=== PATIENT | male | born 1990 | race Caucasian/White ===

== ENCOUNTER 2023-02-09 14:45 | Inpatient (IN) | payer OTHER ==
[2023-02-09 15:36] VITALS: BMI 27.2
[2023-02-09] MEDS ORDERED: LOPERAMIDE HCL 2 MG CAPSULE PO PRN (17:50)
[2023-02-09] MEDS ORDERED: POLYETHYLENE GLYCOL (HEALTHYLAX) 3350 17 GM PACKET PO PRN (17:50)
[2023-02-09] MEDS ORDERED: P-EPHED 60MG/TRIPROLIDI 2.5MG TABLET PO PRN (17:50)
[2023-02-09] MEDS ORDERED: MAG HYDROX/AL HYDROX/SIMETH 30 ML UNIT-DOSE CUP PO PRN (17:50)
[2023-02-09] MEDS ORDERED: ONDANSETRON *ODT* 4 MG TABLET SL PRN (17:50)
[2023-02-09] MEDS ORDERED: DICYCLOMINE HCL 10 MG CAPSULE PO PRN (17:50)
[2023-02-09] MEDS ORDERED: BENZONATATE 200 MG CAPSULE PO PRN (17:50)
[2023-02-09] MEDS ORDERED: NICOTINE POLACRILEX 2 MG GUM BUC PRN (17:50)
[2023-02-09] MEDS ORDERED: IBUPROFEN 400 MG TABLET (FP) PO PRN (17:50)
[2023-02-09] MEDS ORDERED: MAGNESIUM HYDROX 2400MG/30ML ORAL SUSPENSION 30 ML CUP PO PRN (17:50)
[2023-02-09] MEDS ORDERED: IBUPROFEN 600 MG TABLET (FP) PO PRN (17:50)
[2023-02-09] MEDS ORDERED: guaiFENesin 600 MG TABLET.ER (FP) PO PRN (17:50)
[2023-02-09] MEDS ORDERED: METHOCARBAMOL 500 MG TABLET PO PRN (17:50)
[2023-02-09] MEDS ORDERED: BISMUTH SUBSALICYLATE 524 MG/30 ML PO PRN (17:50)
[2023-02-09] MEDS ORDERED: BENZOCAINE/MENTHOL (CHLORASEPTIC ) LOZENGE MM PRN (17:50)
[2023-02-09] MEDS ORDERED: ACETAMINOPHEN 325 MG TABLET (FP) PO PRN (17:50)
[2023-02-09] MEDS: MELATONIN 5 MG TABLETS PO SCH (22:32)
[2023-02-09] MEDS: THIAMINE HCL 100 MG TABLET (FP) PO SCH (22:33)
[2023-02-10] MEDS ORDERED: LORazepam 1 MG TABLET PO PRN (08:37)
[2023-02-10 10:40] LABS: HEMATOCRIT 44.3 % (35.4-49); HEMOGLOBIN 15.8 GM/dL (11.7-16.9); MCH 33.5 pg (25.7-33.7); MCHC 35.6 g/dl (32.0-35.9); MEAN CELL VOLUME 94.2 fl (80-96); MEAN PLT VOLUME 7.2 fl (7.5-11.1); PLATELET COUNT 116 10^3/uL (134-434); RBC 4.71 M/mm3 (4.00-5.60); RDW 14.1 % (11.9-15.9)
[2023-02-10 10:41] LABS: POTASSIUM 3.8 mmol/L (3.5-5.1)
[2023-02-10] MEDS: PRENATAL VITAMINS W/ FOLIC ACID TABLET (FP) PO SCH (10:47)
[2023-02-10] MEDS: LORazepam 2 MG TABLET PO SCH ×3 (10:53→22:00)
[2023-02-10 11:26] LABS: ALBUMIN 4.4 g/dl (3.4-5.0); BLOOD UREA NITROGEN 6.8 mg/dL (7-18); CALCIUM 9.7 mg/dL (8.5-10.1)
[2023-02-10 11:29] LABS: CREATININE 0.7 mg/dL (0.55-1.3)
[2023-02-10 11:31] LABS: TOT PROT 8.2 g/dl (6.4-8.2)
[2023-02-10 11:38] LABS: HIV INTERPRETATION NEGATIVE (NEGATIVE)
[2023-02-10] MEDS ORDERED: PNEUMOC 20-VAL CONJ-DIP CRM/PF 0.5 ML SYRINGE IM ONE (12:00)
[2023-02-10] MEDS: amLODIPine BESYLATE 10 MG TABLET (FP) PO SCH (13:38)
[2023-02-10] MEDS: THIAMINE HCL 100 MG TABLET (FP) PO SCH (21:29)
[2023-02-10] MEDS: MELATONIN 5 MG TABLETS PO SCH (21:29)
[2023-02-10] MEDS: hydrOXYzine PAMOATE 25 MG CAPSULE (FP) PO PRN (21:29)
[2023-02-11] MEDS: LORazepam 1 MG TABLET PO SCH ×4 (05:53→22:10)
[2023-02-11] MEDS: amLODIPine BESYLATE 10 MG TABLET (FP) PO SCH (10:38)
[2023-02-11] MEDS: hydrOXYzine PAMOATE 25 MG CAPSULE (FP) PO PRN (10:38)
[2023-02-11] MEDS: PRENATAL VITAMINS W/ FOLIC ACID TABLET (FP) PO SCH (10:38)
[2023-02-11] MEDS ORDERED: cloNIDine HCL 0.1 MG TABLET PO PRN (15:02)
[2023-02-11] MEDS: THIAMINE HCL 100 MG TABLET (FP) PO SCH (22:10)
[2023-02-11] MEDS: MELATONIN 5 MG TABLETS PO SCH (22:12)
[2023-02-12] MEDS: LORazepam 0.5 MG TABLET PO SCH ×4 (05:38→22:04)
[2023-02-12] MEDS: PRENATAL VITAMINS W/ FOLIC ACID TABLET (FP) PO SCH (10:33)
[2023-02-12] MEDS: amLODIPine BESYLATE 10 MG TABLET (FP) PO SCH (10:33)
[2023-02-12] MEDS: THIAMINE HCL 100 MG TABLET (FP) PO SCH (22:04)
[2023-02-12] MEDS: MELATONIN 5 MG TABLETS PO SCH (22:04)
[2023-02-13] MEDS ORDERED: LORazepam 0.5 MG TABLET PO ONE (05:00)
[2023-02-13 09:30] VITALS: BP 129/83; PULSE 76; RESP 18; TEMP 98.2
[2023-02-13] MEDS: PRENATAL VITAMINS W/ FOLIC ACID TABLET (FP) PO SCH (10:39)
[2023-02-13] MEDS: amLODIPine BESYLATE 10 MG TABLET (FP) PO SCH (10:39)
== END 2023-02-13 11:19 | disposition home or self-care (01) | DRG 775 ==
LOC: YASAS 14:45 → Y6N 19:56
PROVIDERS: ADMIT Allergy & Immunology; ATTEND Surgery
PROC: HZ2ZZZZ Detoxification Services for Substance Abuse Treatment (ICD-10-PCS; principal; 2023-02-09)
DX: F10.230 Alcohol dependence with withdrawal, uncomplicated (principal); F17.210 Nicotine dependence, cigarettes, uncomplicated; F10.280 Alcohol dependence with alcohol-induced anxiety disorder; F32.A Depression, unspecified
CPT/HCPCS: 36415; 80053; 85027; 86780; 87389; 87635; 87811